=== PATIENT | female | born 1995 | race Caucasian/White ===

== ENCOUNTER 2020-06-26 11:29 | Emergency (ER) | payer MEDICAID ==
[~2020-06-26] VITALS: Ht 160 cm; Wt 57.7 kg
[2020-06-26 12:09] LABS: CLARITY,URINE CLOUDY (Clear); COLOR,URINE YELLOW (Yellow); GLUCOSE, URINE NEGATIVE (Neg); KETONES,URINE >=80 mg/dl (Neg); LEUKOCYTE ESTERASE ,URINE TRACE (Neg); NITRITES, URINE NEGATIVE (Neg); OCCULT BLOOD,URINE LARGE (Neg); PH,URINE 5.5 (4.8-8.0); PROTEIN,URINE 100 mg/dl (Neg); UROBILINOGEN,URINE 0.2 E.U/dL (0.2-1.0)
[2020-06-26] MEDS ORDERED: LORazepam 1 MG tablet PO ONE (12:10)
[2020-06-26 12:14] LABS: UA COLLECTION TYPE CLN CATCH MIDSTREAM
[2020-06-26 12:17] LABS: URINE AMPHETAMINE SCREEN NEGATIVE (Neg); URINE BARBITUATE SCREEN NEGATIVE (Neg); URINE BENZODIAZEPINES SCREEN NEGATIVE (Neg); URINE CANNABINOID SCREEN NEGATIVE (Neg); URINE COCAINE SCREEN NEGATIVE (Neg); URINE METHADONE SCREEN NEGATIVE (Neg); URINE OPIATE SCREEN NEGATIVE (Neg); URINE PHENCYCLIDINE SCREEN NEGATIVE (Neg)
[2020-06-26 12:20] LABS: SQUAMOUS EPITHELIAL CELL,UR FEW /LPF (FEW)
[2020-06-26 12:21] LABS: RBC,URINE TNTC /HPF (0-2)
[2020-06-26 12:23] LABS: BACTERIA,URINE 1+ /HPF (Neg)
[2020-06-26 12:24] LABS: HYALINE CASTS 0-3 /LPF (NEGATIVE)
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
[2020-06-26 13:03] LABS: BASOPHILS % (AUTO) 0.9 % (0-1); EOSINOPHILS % (AUTO) 0.3 % (0-6); HEMATOCRIT 37.5 % (35.0-45.0); HEMOGLOBIN 12.6 g/dl (12.0-16.0); LYMPHOCYTES # (AUTO) 0.7 X10'3 (1.1-4.8); LYMPHOCYTES % (AUTO) 18.7 % (21-51); MEAN CORPUSCULAR HEMOGLOBIN 30.7 PG (27.0-31.0); MEAN CORPUSCULAR HGB CONC 33.6 g/dL (33.0-36.5); MEAN CORPUSCULAR VOLUME 91.6 FL (78-98); MONOCYTES # (AUTO) 0.2 X10'3 (0-0.9); MONOCYTES % (AUTO) 6.1 % (2-12); NEUTROPHILS # (AUTO) 2.7 X10'3 (1.8-7.7); PLATELET COUNT 146 X10'3 (140-440); RED CELL DISTRIBUTION WIDTH 13.3 % (11.5-14.5); WHITE BLOOD COUNT 3.6 X10'3 (4.5-11.0)
[2020-06-26 13:14] LABS: ALANINE AMINOTRANSFERASE 16 U/L (12-78); ALBUMIN 4.2 G/DL (3.4-5.0); ALKALINE PHOSPHATASE 63 IU/L (46-116); ANION GAP 15 (8-16); ASPARTATE AMINO TRANSFERASE 28 U/L (10-37); BILIRUBIN,TOTAL 0.8 MG/DL (0.1-1.0); BLOOD UREA NITROGEN 13 MG/DL (7-18); BUN/CREATININE RATIO 18.6 (6.6-38.0); CALCIUM 9.4 MG/DL (8.5-10.1); CHLORIDE 97 MMOL/L (99-107); ETHANOL < 0.010 GM/DL (0.0-0.010); GLUCOSE 132 MG/DL (70-104); SODIUM 134 MMOL/L (135-145); TOTAL CARBON DIOXIDE 22.2 MMOL/L (24-32); TOTAL PROTEIN 8.5 G/DL (6.4-8.2); eGFR > 90 ML/MIN
[2020-06-26 13:41] LABS: URINE HCG NEGATIVE (NEG)
--- NOTE | 2020-06-26 14:32 | NUR ---
Pt. resting supine in her bed, no distress noted. Pt asked about her routine home medications, she states she was taking zoloft but stopped about a week ago stating it would make her feel happy and then down. PA notified by pt., pt. states they are going to be looking into other medication options. Will continue to monitor.
--- NOTE | 2020-06-26 14:54 | NUR ---
FAXED [facility]
[2020-06-26] MEDS ORDERED: HYDR-3717 PO (15:09)
--- NOTE | 2020-06-26 16:06 | NUR ---
Patient reading a book. No distress observed. Patient is pending [facility] eval. [facility] workers had meeting at 1600. Miguel from [facility] will come later to eval patient. Continue to monitor.
--- NOTE | 2020-06-26 17:30 | NUR ---
Miguel HERMOSILLO, evaluating patient. Continue to monitor.
--- NOTE | 2020-06-26 18:04 | NUR ---
Pt eating dinner at bedside. No distress noted. Will continue to monitor.
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
--- NOTE | 2020-06-26 19:40 | NUR ---
Patient sitting up in bed awake and resting. She denies distress. Affect is flat. Patient speaks in a quiet voice with a regular rate, rhythm, and tone.
--- NOTE | 2020-06-26 20:43 | NUR ---
Patient is medication compliant. She rests quietly. In direct view from the nurses station.
[2020-06-26] MEDS ORDERED: hydrOXYzine 10 MG tablet PO PRN (20:50)
--- NOTE | 2020-06-26 21:30 | NUR ---
Mirna taylorgeorges in [facility] - 06/27/20 at 0103 by ANGY Patient sleeping in a mid fowlers position. Snoring resp are present. Patient has good color, she is warm and dry.
[2020-06-26] MEDS ORDERED: hydrOXYzine 25 MG tablet PO ONE (22:20)
[2020-06-26] MEDS ORDERED: Melatonin 3mg tablet PO ONE (22:25)
--- NOTE | 2020-06-26 23:54 | NUR ---
Patient is sleeping quietly on her righe side. No distress. In direct view from nurses station.
--- NOTE | 2020-06-27 02:00 | NUR ---
Patient sleeps quietly. She self repositions. Sleeping in a low fowlers position.
--- NOTE | 2020-06-27 03:07 | NUR ---
Patient is sleeping quietly on her right side. She has self repositioned. No distress at this time.
--- NOTE | 2020-06-27 05:27 | NUR ---
Patient sleeping quietly on right side now. In view from nurses station.
[2020-06-27 06:22] VITALS: BP 125/80
--- NOTE | 2020-06-27 06:40 | NUR ---
Patient sleeping on right side. No distress observed. Continue to monitor.
--- NOTE | 2020-06-27 08:15 | NUR ---
Patient eating breakfast. No distress observed. Continue to monitor.
--- NOTE | 2020-06-27 10:05 | NUR ---
Patient reading in bed. No distress observed. Continue to monitor.
--- NOTE | 2020-06-27 11:55 | NUR ---
Patient with her eyes closed, reclining in bed. No distress observed. Continue to monitor.
--- NOTE | 2020-06-27 13:14 | NUR ---
Patient eating breakfast. No distress observed. Continue to monitor.
--- NOTE | 2020-06-29 08:56 | NUR ---
RECIEVED RESULTS OF PTS UA C/S SHOWING E COLI. PT IS UP ON [facility]. CALLED TO NOTIFY LIANNA BROWN HE STATES HE WILL NOTIFY MD IF NEEDED
[2020-06-30] MEDS ORDERED: QUET100T33 PO (13:19)
[2020-06-30] MEDS ORDERED: SULF1TAB45 PO (13:19)
== END 2020-06-27 14:08 ==
LOC: ER 11:30
DX: R45.851 Suicidal ideations (principal); Z20.822 Contact with and (suspected) exposure to COVID-19; F32.9 Major depressive disorder, single episode, unspecified; Z72.89 Other problems related to lifestyle; Z79.899 Other long term (current) drug therapy
CPT/HCPCS: 36415; 80053; 80305; 80320; 81001; 81025; 85025; 87077; 87088; 87186; 87635; 99285; C9803; Q0177

== ENCOUNTER 2020-09-24 10:49 | Emergency (ER) | payer MEDICAID, OTHER ==
[~2020-09-24] VITALS: Ht 160 cm; Wt 51.0 kg
[~2020-09-24 10:49] MED LIST: HYDR-3717 PO; QUET100T33 PO; SULF1TAB45 PO
[2020-09-24] MEDS ORDERED: ondansetron/PF 4mg/2ml inj IV ONE (11:30)
[2020-09-24] MEDS ORDERED: normal saline 1000ML IV soln IVB ONE ×2 (11:30→17:40)
[2020-09-24 12:13] LABS: BASOPHILS % (AUTO) 0.3 % (0-1); EOSINOPHILS % (AUTO) 0 % (0-6); HEMATOCRIT 42.4 % (35.0-45.0); HEMOGLOBIN 13.8 g/dl (12.0-16.0); LYMPHOCYTES # (AUTO) 0.5 X10'3 (1.1-4.8); LYMPHOCYTES % (AUTO) 2.7 % (21-51); MEAN CORPUSCULAR HEMOGLOBIN 30.8 PG (27.0-31.0); MEAN CORPUSCULAR HGB CONC 32.5 g/dL (33.0-36.5); MEAN CORPUSCULAR VOLUME 94.9 FL (78-98); MEAN PLATELET VOLUME 7.7 FL (7.4-10.4); MONOCYTES # (AUTO) 0.6 X10'3 (0-0.9); MONOCYTES % (AUTO) 3.6 % (2-12); NEUTROPHILS # (AUTO) 15.4 X10'3 (1.8-7.7); NEUTROPHILS % (AUTO) 93.4 % (42-75); PLATELET COUNT 328 X10'3 (140-440); RED BLOOD COUNT 4.47 X10'6 (4.20-5.60); RED CELL DISTRIBUTION WIDTH 14.7 % (11.5-14.5); WHITE BLOOD COUNT 16.5 X10'3 (4.5-11.0)
[2020-09-24 12:28] LABS: ALANINE AMINOTRANSFERASE 36 U/L (12-78); ALBUMIN/GLOBULIN RATIO 1.1 (1.1-1.5); ALKALINE PHOSPHATASE 66 IU/L (46-116); ANION GAP 28 (8-16); ASPARTATE AMINO TRANSFERASE 82 U/L (10-37); BILIRUBIN,TOTAL 0.6 MG/DL (0.1-1.0); BLOOD UREA NITROGEN 12 MG/DL (7-18); BUN/CREATININE RATIO 12.6 (6.6-38.0); CALCIUM 9.1 MG/DL (8.5-10.1); CHLORIDE 95 MMOL/L (99-107); CREATININE 0.95 MG/DL (0.40-0.90); ETHANOL < 0.010 GM/DL (0.0-0.010); GLUCOSE 113 MG/DL (70-104); LIPASE 110 U/L (73-393); POTASSIUM 4.9 MMOL/L (3.5-5.1); SODIUM 131 MMOL/L (135-145); TOTAL PROTEIN 9.4 G/DL (6.4-8.2); eGFR 71 ML/MIN
[2020-09-24 12:30] LABS: TOTAL CARBON DIOXIDE 7.6 MMOL/L (24-32)
[2020-09-24 14:41] LABS: HCG SERUM QL NEGATIVE
--- NOTE | 2020-09-24 16:09 | NUR ---
receive patient in bed 1.
[2020-09-24] MEDS ORDERED: famotidine/PF 10 mg/ml inj IV ONE (16:15)
[2020-09-24] MEDS ORDERED: LORazepam 2 mg/ml vial IV ONE (16:35)
--- NOTE | 2020-09-24 16:51 | NUR ---
ICE CHIPS OK PER JESUS [place].
--- NOTE | 2020-09-24 16:52 | NUR ---
FAMILY AT BEDSIDE.CALL LIGHT WITHIN REACH.
[2020-09-24 16:57] LABS: COLOR,URINE YELLOW (Yellow); GLUCOSE, URINE NEGATIVE (Neg); KETONES,URINE >=80 mg/dl (Neg); LEUKOCYTE ESTERASE ,URINE NEGATIVE (Neg); NITRITES, URINE NEGATIVE (Neg); OCCULT BLOOD,URINE LARGE (Neg); PROTEIN,URINE >=300 mg/dl (Neg); UROBILINOGEN,URINE 0.2 E.U/dL (0.2-1.0)
[2020-09-24 17:03] LABS: URINE AMPHETAMINE SCREEN NEGATIVE (Neg); URINE BARBITUATE SCREEN NEGATIVE (Neg); URINE BENZODIAZEPINES SCREEN NEGATIVE (Neg); URINE CANNABINOID SCREEN NEGATIVE (Neg); URINE COCAINE SCREEN POSITIVE (Neg); URINE METHADONE SCREEN NEGATIVE (Neg); URINE OPIATE SCREEN NEGATIVE (Neg); URINE PHENCYCLIDINE SCREEN NEGATIVE (Neg)
[2020-09-24 17:34] LABS: CLARITY,URINE SLIGHTLY CLOUDY (Clear); UA COLLECTION TYPE CLN CATCH MIDSTREAM
[2020-09-24 17:38] LABS: BACTERIA,URINE NONE SEEN /HPF (Neg); MUCUS STRANDS FEW /LPF (Neg); RBC,URINE 0-2 /HPF (0-2); SQUAMOUS EPITHELIAL CELL,UR MODERATE /LPF (FEW); WBC,URINE 0-4 /HPF (0-4)
[2020-09-24 17:39] LABS: HYALINE CASTS 0-3 /LPF (NEGATIVE)
--- NOTE | 2020-09-24 18:00 | NUR ---
Finishing up NS.
[2020-09-24 19:42] VITALS: BP 118/69
== END 2020-09-24 19:44 | disposition home or self-care (01) ==
LOC: ER 10:51
DX: E87.2 Acidosis (principal); J02.9 Acute pharyngitis, unspecified; E86.0 Dehydration; R11.2 Nausea with vomiting, unspecified; R10.84 Generalized abdominal pain; R51.9 Headache, unspecified; F14.10 Cocaine abuse, uncomplicated; F32.9 Major depressive disorder, single episode, unspecified; Z72.89 Other problems related to lifestyle; Z79.2 Long term (current) use of antibiotics; Z79.899 Other long term (current) drug therapy
CPT/HCPCS: 36415; 74176; 80053; 80305; 80320; 81001; 83605; 83690; 84145; 84703; 85025; 87040; 96361; 96374; 96375; 99285; J2060; J2405; J3490; J7030

== ENCOUNTER 2020-10-05 11:52 | Emergency (ER) | payer SELFPAY ==
[~2020-10-05] VITALS: Ht 160 cm; Wt 54.5 kg
[2020-10-05] MEDS ORDERED: acetaminophen 325mg tablet PO ONE (12:45)
[2020-10-05] MEDS ORDERED: LORazepam 1 MG tablet PO ONE (12:45)
[2020-10-05] MEDS ORDERED: TETanus/Pertussis (Acell)/Diphther VAC/PF (Tdap-Adult) 0.5ml syringe IMVAC ONE (13:15)
[2020-10-05 13:44] LABS: URINE HCG NEGATIVE (NEG)
[2020-10-05 13:45] LABS: CLARITY,URINE SLIGHTLY CLOUDY (Clear); COLOR,URINE YELLOW (Yellow); GLUCOSE, URINE NEGATIVE (Neg); KETONES,URINE NEGATIVE (Neg); LEUKOCYTE ESTERASE ,URINE TRACE (Neg); NITRITES, URINE NEGATIVE (Neg); OCCULT BLOOD,URINE LARGE (Neg); PH,URINE 7.5 (4.8-8.0); PROTEIN,URINE 30 mg/dl (Neg); UROBILINOGEN,URINE 0.2 E.U/dL (0.2-1.0)
[2020-10-05 13:57] LABS: URINE AMPHETAMINE SCREEN NEGATIVE (Neg); URINE BARBITUATE SCREEN NEGATIVE (Neg); URINE BENZODIAZEPINES SCREEN NEGATIVE (Neg); URINE CANNABINOID SCREEN NEGATIVE (Neg); URINE COCAINE SCREEN POSITIVE (Neg); URINE METHADONE SCREEN NEGATIVE (Neg); URINE OPIATE SCREEN NEGATIVE (Neg); URINE PHENCYCLIDINE SCREEN NEGATIVE (Neg)
[2020-10-05 13:59] LABS: UA COLLECTION TYPE CLN CATCH MIDSTREAM
[2020-10-05 14:06] LABS: MUCUS STRANDS FEW /LPF (Neg); SQUAMOUS EPITHELIAL CELL,UR MANY /LPF (FEW)
[2020-10-05 14:08] LABS: BACTERIA,URINE 1+ /HPF (Neg); RBC,URINE NONE SEEN /HPF (0-2); TRANSITIONAL EPI CELLS,URINE FEW /HPF
[2020-10-05 14:43] VITALS: BP 100/64
--- NOTE | 2020-10-05 16:44 | NUR ---
DELIVERY HELPER ARRIVES AT BS
[2020-10-05] MEDS ORDERED: HYDR-3965 PO (16:52)
[2020-10-05] MEDS ORDERED: ONDA4TAB6 PO (16:52)
[2020-10-05] MEDS ORDERED: ketorolac trometh. 30mg/ml inj. IM ONE (17:05)
== END 2020-10-05 17:49 | disposition home or self-care (01) ==
LOC: ER 11:53
DX: S82.301A Unspecified fracture of lower end of right tibia, initial encounter for closed fracture (principal); S82.831A Other fracture of upper and lower end of right fibula, initial encounter for closed fracture; F32.9 Major depressive disorder, single episode, unspecified; X58.XXXA Exposure to other specified factors, initial encounter; Y93.89 Activity, other specified; Y92.89 Other specified places as the place of occurrence of the external cause; Y99.8 Other external cause status
CPT/HCPCS: 70450; 72125; 73590; 73610; 80305; 81001; 81025; 90471; 90715; 96372; 99285; J1885

== ENCOUNTER 2021-09-27 11:13 | Emergency (ER) | payer BC, MEDICAID ==
[~2021-09-27] VITALS: Ht 160 cm; Wt 52.3 kg
[~2021-09-27 11:13] MED LIST changes: +ONDA4TAB6 PO; -QUET100T33 PO; +QUET100T34 PO
[2021-09-27 12:16] LABS: BASOPHILS % (AUTO) 0.4 % (0-1); EOSINOPHILS % (AUTO) 0.2 % (0-6); HEMATOCRIT 36.4 % (35.0-45.0); HEMOGLOBIN 12.3 g/dl (12.0-16.0); LYMPHOCYTES # (AUTO) 1.5 X10'3 (1.1-4.8); LYMPHOCYTES % (AUTO) 15.8 % (21-51); MEAN CORPUSCULAR HEMOGLOBIN 28.3 PG (27.0-31.0); MEAN CORPUSCULAR HGB CONC 33.9 g/dL (33.0-36.5); MEAN CORPUSCULAR VOLUME 83.3 FL (78-98); MONOCYTES # (AUTO) 0.6 X10'3 (0-0.9); MONOCYTES % (AUTO) 6.3 % (2-12); NEUTROPHILS # (AUTO) 7.1 X10'3 (1.8-7.7); NEUTROPHILS % (AUTO) 77.3 % (42-75); PLATELET COUNT 229 X10'3 (140-440); RED BLOOD COUNT 4.37 X10'6 (4.20-5.60); RED CELL DISTRIBUTION WIDTH 13.1 % (11.5-14.5); WHITE BLOOD COUNT 9.2 X10'3 (4.5-11.0)
[2021-09-27 12:20] LABS: URINE HCG NEGATIVE (NEG)
[2021-09-27 12:21] LABS: CLARITY,URINE SLIGHTLY CLOUDY (Clear); COLOR,URINE YELLOW (Yellow); GLUCOSE, URINE NEGATIVE (Neg); KETONES,URINE NEGATIVE (Neg); LEUKOCYTE ESTERASE ,URINE NEGATIVE (Neg); NITRITES, URINE NEGATIVE (Neg); OCCULT BLOOD,URINE NEGATIVE (Neg); PROTEIN,URINE NEGATIVE (Neg); UROBILINOGEN,URINE 0.2 E.U/dL (0.2-1.0)
[2021-09-27 12:24] LABS: UA COLLECTION TYPE CLN CATCH MIDSTREAM
[2021-09-27 12:29] LABS: ALANINE AMINOTRANSFERASE 15 U/L (12-78); ALBUMIN 4.8 G/DL (3.4-5.0); ALBUMIN/GLOBULIN RATIO 1.3 (1.1-1.5); ALKALINE PHOSPHATASE 52 IU/L (46-116); AMYLASE 47 U/L (25-115); ANION GAP 11 (8-16); ASPARTATE AMINO TRANSFERASE 13 U/L (10-37); BILIRUBIN,TOTAL 0.6 MG/DL (0.1-1.0); BLOOD UREA NITROGEN 15 MG/DL (7-18); BUN/CREATININE RATIO 19.2 (6.6-38.0); CHLORIDE 100 MMOL/L (99-107); CREATININE 0.78 MG/DL (0.40-0.90); GLUCOSE 98 MG/DL (70-104); LIPASE 82 U/L (73-393); POTASSIUM 3.7 MMOL/L (3.5-5.1); SODIUM 136 MMOL/L (135-145); TOTAL CARBON DIOXIDE 25.3 MMOL/L (24-32); TOTAL PROTEIN 8.4 G/DL (6.4-8.2); eGFR 88 ML/MIN
[2021-09-27 12:33] LABS: RBC,URINE 0-2 /HPF (0-2); WBC,URINE 20-30 /HPF (0-4)
[2021-09-27 12:34] LABS: BACTERIA,URINE 2+ /HPF (Neg); MUCUS STRANDS MODERATE /LPF (Neg); SQUAMOUS EPITHELIAL CELL,UR MANY /LPF (FEW)
[2021-09-27 16:11] LABS: CLARITY,URINE CLEAR (Clear); GLUCOSE, URINE NEGATIVE (Neg); KETONES,URINE NEGATIVE (Neg); LEUKOCYTE ESTERASE ,URINE NEGATIVE (Neg); NITRITES, URINE NEGATIVE (Neg); OCCULT BLOOD,URINE NEGATIVE (Neg); PROTEIN,URINE NEGATIVE (Neg); UROBILINOGEN,URINE 0.2 E.U/dL (0.2-1.0)
[2021-09-27] MEDS ORDERED: NAPR-56 PO (16:12)
[2021-09-27] MEDS ORDERED: naproxen 500mg tablet PO ONE (16:15)
[2021-09-27 16:20] LABS: COLOR,URINE STRAW (Yellow); UA COLLECTION TYPE CLN CATCH MIDSTREAM
[2021-09-27] MEDS ORDERED: iohexol 300mg/ml 100ml inj. ONE (17:16)
[2021-09-27 17:20] VITALS: BP 114/63
== END 2021-09-27 18:51 | disposition home or self-care (01) ==
LOC: ER 11:15
DX: N83.201 Unspecified ovarian cyst, right side (principal); R10.84 Generalized abdominal pain; R06.02 Shortness of breath; R42 Dizziness and giddiness; F32.A Depression, unspecified; Z72.89 Other problems related to lifestyle; Z79.2 Long term (current) use of antibiotics; Z79.899 Other long term (current) drug therapy
CPT/HCPCS: 36415; 74018; 74177; 76700; 76830; 76856; 80053; 81001; 81003; 81025; 82150; 83690; 85025; 87491; 87591; 93005; 93976; 99285; J3490; Q9967

== ENCOUNTER 2025-02-01 14:18 | Emergency (ER) | payer BC, MEDICAID ==
[~2025-02-01] VITALS: Ht 160 cm; Wt 46.9 kg
[2025-02-01 14:27] VITALS: BP 113/76; PULSE 92; TEMP 97; O2SAT 98
[2025-02-01 15:23] LABS: LEUKOCYTE ESTERASE ,URINE TRACE (Neg); NITRITES, URINE NEGATIVE (Neg); OCCULT BLOOD,URINE SMALL (Neg)
[2025-02-01 15:25] LABS: UA COLLECTION TYPE VOIDED
[2025-02-01 15:30] LABS: SQUAMOUS EPITHELIAL CELL,UR FEW /LPF (FEW)
[2025-02-01 15:31] LABS: URINE HCG NEGATIVE (NEG)
[2025-02-01 15:31] LABS: MEAN PLATELET VOLUME 8.1 FL (7.4-10.4); RED CELL DISTRIBUTION WIDTH 13.7 % (11.5-14.5)
--- NOTE | 2025-02-01 15:44 | Physician Documentation ---
History of Present Illness ~ Chief Complaint: Mental Health Eval Stated Complaint: SI Time Seen by MD: 14:32 Primary Medical Doctor: [facility] This is a 30-year-old female with a history of depression who presents with suicidal ideation, patient reports that she attempted to overdose on gabapentin three days prior taking an entire bottle of gabapentin, patient reports she attempted to also consume a large amount of alcohol but was unable to gain access to alcohol, she reports taking no other medications substances. Patient reports that she fell asleep and woke up the next morning, patient reports that she has been in contact with both her therapist and psychiatrist and was recommended to come to the emergency department due to continued feelings of suicidal ideation. Patient reports past history of suicide attempt and reports continued suicidal ideation with plan to repeat attempting to overdose on prescribed medications. Patient reports that she did have some GI upset including diarrhea after taking the gabapentin and has not eaten very much in the last two days, though otherwise feels well. Patient reports no other acute symptoms or concerns. Medication Reconciliation Allergies: Coded Allergies: No Known Allergies (Unverified , 02/01/25) Miscellaneous Medications Home Med List (No Home Medications), (Reported) Discontinued Medications Hydroxyzine Hcl* (Atarax*), 1 TAB PO BID PRN for for anxiety/agitation, (Reported) Discontinued Reason: patient no longer taking Ondansetron Hcl (Zofran), 1 TAB PO Q6H Discontinued Reason: patient no longer taking Quetiapine Fumarate (Quetiapine Fumarate), 100 MG PO BID and QHS & MR x 1 Discontinued Reason: patient no longer taking Sulfamethoxazole/Trimethoprim (Septra Ds Tab), 1 TAB PO BID Discontinued Reason: patient no longer taking Past Medical History Past Medical History: *GI/HEPATOBILIARY*, Depression Past Surgical History: no surgical history Patient History: FH: alcoholism FATHER FH: depression uncle Alcohol Use: Occasionally Drug Use: none Lives In: Home Occupation: employed Review of Systems ROS As stated above in the HPI, otherwise all systems are reviewed and negative. Physical Exam Vital Signs: Temperature: 97.0, Source: Temporal, Heart Rate: 92, Respiratory Rate: 18, BP: 113/76, Pulse Oximetry: 98, Weight: 46.900 Oxygen Flow Rate: 0 Physical Exam VITALS: Reviewed and as above. GENERAL: Alert, nontoxic appearing, no apparent distress. HEENT: PERRLA, EOMI RESPIRATORY: No increased work of breathing, no respiratory distress, speaking in full clear sentences, clear lung sounds in all guajardo CV: Regular rate and rhythm no murmur BACK: Nontender to palpation, no CVA tenderness GI: Soft, nontender, nondistended, no rebound, no guarding MUSCULOSKELETAL: No deformities, nontender to palpation, range of motion intact SKIN: Warm and dry NEURO: GCS 15 PSYCH: Mood and affect statements of SI and depression Progress Results/Orders Results/Orders Vital Signs 02/01/25 02/01/25 02/01/25 02/02/25 14:27 16:03 17:06 08:42 Temp 97.0 Pulse 92 Resp 18 16 15 B/P (MAP) 113/76 Pulse Ox 98 O2 Flow Rate 0 Laboratory Tests Test 02/01/25 15:00 02/01/25 15:05 02/01/25 15:15 SARS-CoV-2 Antigen (Rapid) Negative Urine Specimen Description Voided Urine Color Yellow Urine Clarity Clear Urine pH 6.0 Urine Specific [place] 1.010 Urine Protein Negative Urine Glucose (UA) Negative Urine Ketones Negative Urine Occult Blood Small Urine Nitrite Negative Urine Bilirubin Negative Urine Urobilinogen 0.2 Urine Leukocyte Esterase Trace H Urine RBC 0-2 Urine WBC 0-4 Urine Squamous Epithelial Cells Few Urine Bacteria Few Volume Urine Centrifuged 10 ml Urine HCG, Qualitative Negative Urine Comment Urine Opiates Screen Negative Urine Methadone Screen Negative Urine Fentanyl Screen Negative Urine Barbiturates Screen Negative Urine Phencyclidine Screen Negative Urine Amphetamines Screen Negative Urine Benzodiazepines Screen Negative Urine Cocaine Screen Negative Urine Cannabinoids Screen Positive Drug Screen Comment White Blood Count 5.5 Red Blood Count 4.54 Hemoglobin 12.7 Hematocrit 37.1 Mean Corpuscular Volume 81.9 Mean Corpuscular Hemoglobin 28.1 Mean Corpuscular Hemoglobin Concent 34.3 Red Cell Distribution Width 13.7 Platelet Count 160 Mean Platelet Volume 8.1 Neutrophils (%) (Auto) 66.4 Lymphocytes (%) (Auto) 26.0 Monocytes (%) (Auto) 5.4 Eosinophils (%) (Auto) 1.0 Basophils (%) (Auto) 1.2 H Neutrophils # (Auto) 3.6 Lymphocytes # (Auto) 1.4 Monocytes # (Auto) 0.3 Eosinophils # (Auto) 0.1 Basophils # (Auto) 0.1 CBC Comment Sodium Level 138 Potassium Level 4.0 Chloride Level 102 Carbon Dioxide Level 28.6 Anion Gap 7 L Blood Urea Nitrogen 10 Creatinine 0.69 Estimated GFR/1.73 m2 > 90 BUN/Creatinine Ratio 14.5 Glucose Level 103 Calcium Level 8.8 Albumin 4.2 Thyroid Stimulating Hormone (TSH) 3.01 Chemistry Comments Ethyl Alcohol Level < 10 Medical Decision Making Additional information obtaine: N/A Findings This is a 30-year-old female with a history of depression presented with suicidal ideations with reported attempt three days prior by overdose on gabapentin, as patient reported taking a large dose of gabapentin several days ago and has recovered with little remaining symptoms poison control was not contacted, patient is otherwise well with only mild GI upset and diarrhea as lingering effect from massive dose of gabapentin three days prior. Patient reports no other acute symptoms or concerns and physical exam was benign including normal neurologic exam. Lab work did not demonstrate significant abnormality. Patient is well-appearing and hemodynamically stable and appropriate for outpatient follow up therefore medically cleared for evaluation by [facility]. Transfer orders for [facility]: At this time there is no evidence of an emergent medical condition that would preclude (admission/transfer) to a psychiatric unit via [facility] protocol for further psychiatric, as well as medical evaluation and treatment. At this time I have no reason to believe that transfer via [facility] protocol would have serious medical compromise in the patient's health. 0 600 02/02/2025- I took over care of this patient for my shift. Patient remained stable during my shift with no acute events. The patient was assessed by [facility]. Patient is no longer suicidal and has good home support. She is to follow up with mental health as an outpatient and return to the ED with any acutely recurring symptoms. Differential Dx:Considerations: Include: Alcohol abuse, Anxiety, Bipolar disorder, Conversion disorder, Depression, Encephaloathy, Homicidal, Panic disorder, Personality disorder, Schizophrenia, Substance abuse, Suicidal, Other (Gabapentin toxicity, GI bleed, bacterial diarrhea, viral diarrhea, UTI, bowel obstruction, dehydration, electrolyte abnormality) Departure Time of Disposition: 16:07 Disposition: 01 HOME / SELF CARE / HOMELESS Impression: Primary Impression: Suicidal ideation Condition: Improved Discharge Instructions: Suicidal Feelings: How to Help Yourself Additional Instructions: Please follow up with mental health as an outpatient. Should you feel any suicidal thoughts once again please return immediately to the emergency department. Referrals: NO PRIMARY CARE PROVIDER (PCP) Education Educated: Patient, Family Educated regarding: diagnosis, treatment, prognosis, need for follow up Signature Scribe Signature: No scribe Attestation: The note accurately reflects work and decisions made by me.CLAU Loaiza 02/01/25 16:07 Parts of this note were created using [employer] voice recognition software program. While efforts were made to correct any mistakes made by this voice recognition software program, nonsensical phrases may remain in this note. In addition, there may be errors and syntax, grammar, content and spelling. SCOTTY ELIAS Feb 01, 2025 15:44 DENISE CAGLE MD Feb 02, 2025 06:12
[2025-02-01 15:46] LABS: URINE AMPHETAMINE SCREEN NEGATIVE (Neg); URINE BARBITUATE SCREEN NEGATIVE (Neg); URINE BENZODIAZEPINES SCREEN NEGATIVE (Neg); URINE CANNABINOID SCREEN POSITIVE (Neg); URINE COCAINE SCREEN NEGATIVE (Neg); URINE METHADONE SCREEN NEGATIVE (Neg); URINE OPIATE SCREEN NEGATIVE (Neg); URINE PHENCYCLIDINE SCREEN NEGATIVE (Neg)
[2025-02-01 15:57] LABS: CREATININE 0.69 MG/DL (0.40-0.90); ETHANOL < 10 MG/DL (<10); TOTAL CARBON DIOXIDE 28.6 MMOL/L (24-32); eCRCL 87 ML/MIN; eGFR > 90 ML/MIN
[2025-02-01] MEDS ORDERED: NO HOME MEDS (17:00)
[2025-02-01 17:06] VITALS: RESP 15
== END 2025-02-02 10:41 | disposition home or self-care (01) ==
LOC: ER 14:19
DX: R45.851 Suicidal ideations (principal); F32.A Depression, unspecified; Z72.89 Other problems related to lifestyle; Z20.822 Contact with and (suspected) exposure to COVID-19
CPT/HCPCS: 36415; 80048; 80305; 80320; 81001; 81025; 84443; 85025; 87811; 99285